=== PATIENT | female | born 1965 | race Hispanic/Latino ===

== ENCOUNTER 2017-06-01 18:36 | Emergency (ER) | payer MEDICARE ==
[2017-06-01 19:01] LABS: APPEARANCE,URINE Clear (CLEAR); BILIRUBIN,URINE Negative (NEGATIVE); COLOR,URINE Yellow (YELLOW); GLUCOSE, URINE (UA) Negative (NEGATIVE); KETONES,URINE Trace mg/dL (NEGATIVE); LEUKOCYTE ESTERASE ,URINE Negative (NEGATIVE); NITRATE,URINE Negative (NEGATIVE); OCCULT BLOOD,URINE Trace (NEGATIVE); PH,URINE 5.5 (5.0-8.0); PROTEIN,URINE Negative (NEGATIVE)
[2017-06-01 19:14] LABS: BACTERIA,URINE None Seen /HPF (None Seen); RBC,URINE 0-1 /HPF (0-1); WBC,URINE 0-1 /HPF (0-1)
[2017-06-01 19:15] LABS: SQUAMOUS EPITHELIAL CELL,UR 0-2 /LPF (0-2)
[2017-06-01] MEDS ORDERED: TRAMADOL HCL 50 MG TABLET ONE (19:52)
[2017-06-01 19:56] LABS: BASOPHILS % (AUTO) 0.3 % (0.0-5.0); EOSINOPHILS % (AUTO) 1.3 % (0.0-8.0); HEMATOCRIT 38.1 % (36-48); LYMPHOCYTES % (AUTO) 31.8 % (21.0-51.0); MEAN CORPUSCULAR HEMOGLOBIN 32.9 pg (27.0-33.0); MEAN CORPUSCULAR HGB CONC 35.1 g/dL (32.0-36.0); MEAN CORPUSCULAR VOLUME 93.7 fL (79-99); MONOCYTES % (AUTO) 6.9 % (3.0-13.0); NEUTROPHILS % (AUTO) 59.7 % (40.0-77.0); NUCLEATED RED BLOOD CELLS 0.1 % (0.0-0.19); PLATELET COUNT (AUTO) 269 K/uL (130-400); RED BLOOD CELL COUNT(AUTO) 4.07 MIL/uL (4.00-5.50); RED CELL DISTRIBUTION WIDTH 13.7 % (11.0-15.5); WHITE BLOOD COUNT (AUTO) 9.5 K/uL (4.8-10.8)
[2017-06-01 20:03] LABS: CREATININE 0.8 mg/dL (0.5-1.5); POTASSIUM 3.6 mmol/L (3.5-5.1)
[2017-06-01 20:07] LABS: ALBUMIN 3.4 g/dL (3.5-5.0); BILIRUBIN,TOTAL 0.4 mg/dL (0.2-1.0); TOTAL PROTEIN, SERUM 7.6 g/dL (6.0-8.3)
== END 2017-06-01 21:52 | disposition home or self-care (01) ==
LOC: EDH 18:36
DX: S39.011A Strain of muscle, fascia and tendon of abdomen, initial encounter (principal); I48.91 Unspecified atrial fibrillation; I25.10 Atherosclerotic heart disease of native coronary artery without angina pectoris; E11.9 Type 2 diabetes mellitus without complications; I10 Essential (primary) hypertension; Z88.6 Allergy status to analgesic agent; X58.XXXA Exposure to other specified factors, initial encounter; Y93.89 Activity, other specified; Y92.89 Other specified places as the place of occurrence of the external cause; Y99.8 Other external cause status
CPT/HCPCS: 36415; 80053; 81001; 83690; 85025

== ENCOUNTER 2017-06-24 08:35 | Emergency (ER) | payer MEDICARE ==
[2017-06-24 09:06] LABS: APPEARANCE,URINE CLEAR (CLEAR); BILIRUBIN,URINE SMALL (NEGATIVE); COLOR,URINE YELLOW (YELLOW); GLUCOSE, URINE (UA) NEGATIVE (NEGATIVE); KETONES,URINE NEGATIVE (NEGATIVE); LEUKOCYTE ESTERASE ,URINE NEGATIVE (NEGATIVE); NITRATE,URINE NEGATIVE (NEGATIVE); OCCULT BLOOD,URINE SMALL (NEGATIVE); PROTEIN,URINE TRACE (NEGATIVE); UROBILINOGEN,URINE 0.2 mg/dL (0.2-1.0)
[2017-06-24 09:16] LABS: HCG,QUAL RESULT NEGATIVE (NEGATIVE)
[2017-06-24 09:17] LABS: BACTERIA,URINE Rare /HPF (None Seen); RBC,URINE 0-1 /HPF (0-1); SQUAMOUS EPITHELIAL CELL,UR Rare /LPF (0-2); WBC,URINE 0-1 /HPF (0-1)
[2017-06-24 09:43] LABS: BASOPHILS % (AUTO) 0.2 % (0.0-5.0); EOSINOPHILS % (AUTO) 1.1 % (0.0-8.0); HEMATOCRIT 37.8 % (36-48); LYMPHOCYTES % (AUTO) 26.4 % (21.0-51.0); MEAN CORPUSCULAR HEMOGLOBIN 33.3 pg (27.0-33.0); MEAN CORPUSCULAR HGB CONC 35.9 g/dL (32.0-36.0); MEAN CORPUSCULAR VOLUME 92.9 fL (79-99); MONOCYTES % (AUTO) 5.8 % (3.0-13.0); NEUTROPHILS % (AUTO) 66.5 % (40.0-77.0); NUCLEATED RED BLOOD CELLS 0.1 % (0.0-0.19); PLATELET COUNT (AUTO) 278 K/uL (130-400); RED BLOOD CELL COUNT(AUTO) 4.07 MIL/uL (4.00-5.50); RED CELL DISTRIBUTION WIDTH 13.9 % (11.0-15.5); WHITE BLOOD COUNT (AUTO) 10.5 K/uL (4.8-10.8)
[2017-06-24 09:51] LABS: CREATININE 0.8 mg/dL (0.5-1.5); POTASSIUM 3.6 mmol/L (3.5-5.1)
[2017-06-24 09:56] LABS: ALBUMIN 3.4 g/dL (3.5-5.0); BILIRUBIN,TOTAL 0.7 mg/dL (0.2-1.0); TOTAL PROTEIN, SERUM 7.8 g/dL (6.0-8.3)
== END 2017-06-24 12:48 | disposition home or self-care (01) ==
LOC: EDH 08:35
DX: R10.84 Generalized abdominal pain (principal); R11.0 Nausea; I48.91 Unspecified atrial fibrillation; E11.9 Type 2 diabetes mellitus without complications; I25.10 Atherosclerotic heart disease of native coronary artery without angina pectoris; E78.5 Hyperlipidemia, unspecified; Z88.6 Allergy status to analgesic agent; Z90.710 Acquired absence of both cervix and uterus
CPT/HCPCS: 36415; 74176; 80053; 81001; 81025; 85025

== ENCOUNTER 2018-04-11 14:23 | Emergency (ER) | payer MEDICARE ==
[2018-04-11 15:05] LABS: BILIRUBIN,URINE Negative (NEGATIVE); COLOR,URINE Yellow (YELLOW); GLUCOSE, URINE (UA) >=1000 mg/dL (NEGATIVE); KETONES,URINE Negative (NEGATIVE); LEUKOCYTE ESTERASE ,URINE Negative (NEGATIVE); NITRATE,URINE Negative (NEGATIVE); OCCULT BLOOD,URINE Nonhemolyzed Trace (NEGATIVE); PH,URINE 5.5 (5.0-8.0); PROTEIN,URINE Negative (NEGATIVE); UROBILINOGEN,URINE 0.2 mg/dL (0.2-1.0)
[2018-04-11 15:13] LABS: APPEARANCE,URINE SLIGHTLY CLOUDY (CLEAR)
[2018-04-11 15:38] LABS: BACTERIA,URINE Moderate /HPF (None Seen); WBC,URINE 0-1 /HPF (0-1)
== END 2018-04-11 15:30 | disposition home or self-care (01) ==
LOC: EDH 14:23
DX: B37.3 Candidiasis of vulva and vagina (principal); I48.91 Unspecified atrial fibrillation; I25.10 Atherosclerotic heart disease of native coronary artery without angina pectoris; E11.9 Type 2 diabetes mellitus without complications; I10 Essential (primary) hypertension; Z88.6 Allergy status to analgesic agent
CPT/HCPCS: 81001; 87088

== ENCOUNTER 2018-11-19 16:48 | Emergency (ER) | payer MEDICARE | END 2018-11-19 17:17 | disposition home or self-care (01) | LOC: EDH 16:48 | DX: S81.012D Laceration without foreign body, left knee, subsequent encounter (principal); I10 Essential (primary) hypertension; I48.91 Unspecified atrial fibrillation; I25.10 Atherosclerotic heart disease of native coronary artery without angina pectoris; E11.9 Type 2 diabetes mellitus without complications; Z95.1 Presence of aortocoronary bypass graft; Z98.890 Other specified postprocedural states; Z88.6 Allergy status to analgesic agent; X58.XXXD Exposure to other specified factors, subsequent encounter | CPT/HCPCS: 99281 ==

== ENCOUNTER 2019-01-29 17:04 | Emergency (ER) | payer MEDICARE ==
[2019-01-29 18:36] LABS: BASOPHILS % (AUTO) 1.2 % (0.0-5.0); EOSINOPHILS % (AUTO) 3.4 % (0.0-8.0); HEMATOCRIT 38.8 % (36-48); LYMPHOCYTES % (AUTO) 37.2 % (21.0-51.0); MEAN CORPUSCULAR HEMOGLOBIN 32.4 pg (27.0-33.0); MEAN CORPUSCULAR HGB CONC 35.4 g/dL (32.0-36.0); MEAN CORPUSCULAR VOLUME 91.5 fL (79-99); MONOCYTES % (AUTO) 6.6 % (3.0-13.0); NEUTROPHILS % (AUTO) 51.6 % (40.0-77.0); PLATELET COUNT (AUTO) 237 K/uL (130-400); RED BLOOD CELL COUNT(AUTO) 4.24 MIL/uL (4.00-5.50); WHITE BLOOD COUNT (AUTO) 7.9 K/uL (4.8-10.8)
[2019-01-29 18:41] LABS: APPEARANCE,URINE Clear (CLEAR); BILIRUBIN,URINE Negative (NEGATIVE); COLOR,URINE Yellow (YELLOW); GLUCOSE, URINE (UA) >=1000 mg/dL (NEGATIVE); KETONES,URINE Negative (NEGATIVE); LEUKOCYTE ESTERASE ,URINE Negative (NEGATIVE); NITRATE,URINE Negative (NEGATIVE); OCCULT BLOOD,URINE Negative (NEGATIVE); PROTEIN,URINE Negative (NEGATIVE); UROBILINOGEN,URINE 0.2 mg/dL (0.2-1.0)
[2019-01-29 18:52] LABS: CREATININE 0.7 mg/dL (0.5-1.5); POTASSIUM 4.4 mmol/L (3.5-5.1)
[2019-01-29 18:55] LABS: BACTERIA,URINE Few /HPF (None Seen); MUCUS,URINE Few LPF (None Seen); SQUAMOUS EPITHELIAL CELL,UR 0-2 /HPF (0-2)
[2019-01-29 18:56] LABS: ALBUMIN 3.4 g/dL (3.5-5.0); BILIRUBIN,TOTAL 0.4 mg/dL (0.2-1.0); TOTAL PROTEIN, SERUM 7.3 g/dL (6.0-8.3)
[2019-01-29] MEDS ORDERED: INSULIN HUMULIN R 100 UNIT/ML 3ML ONE (19:21)
== END 2019-01-29 19:45 | disposition home or self-care (01) ==
LOC: EDH 17:04
DX: R11.2 Nausea with vomiting, unspecified (principal); E11.9 Type 2 diabetes mellitus without complications; I10 Essential (primary) hypertension; I25.10 Atherosclerotic heart disease of native coronary artery without angina pectoris; I48.91 Unspecified atrial fibrillation; Z90.710 Acquired absence of both cervix and uterus; Z90.49 Acquired absence of other specified parts of digestive tract; Z98.890 Other specified postprocedural states; Z88.6 Allergy status to analgesic agent
CPT/HCPCS: 36415; 74176; 80053; 81001; 83690; 84484; 85025; 93005; 96374; 99285; J1815

== ENCOUNTER 2019-02-06 19:28 | Emergency (ER) | payer MEDICARE | END 2019-02-06 21:02 | disposition home or self-care (01) | LOC: EDH 19:28 | DX: N76.1 Subacute and chronic vaginitis (principal); I10 Essential (primary) hypertension; E11.9 Type 2 diabetes mellitus without complications; I25.10 Atherosclerotic heart disease of native coronary artery without angina pectoris; I48.91 Unspecified atrial fibrillation ==

== ENCOUNTER 2023-09-12 18:04 | Emergency (ER) | payer MEDICARE ==
[~2023-09-12] VITALS: Ht 162.6 cm; Wt 108.4 kg
[2023-09-12] MEDS ORDERED: 0.9%NACL 1000ML 1,000 ML IV SCH (18:30)
[2023-09-12 19:12] LABS: BASOPHILS # (AUTO) 0.03 K/uL (0.00-0.20); BASOPHILS % (AUTO) 0.2 % (0.0-5.0); EOSINOPHILS # (AUTO) 0.01 K/uL (0.00-0.70); EOSINOPHILS % (AUTO) 0.1 % (0.0-8.0); HEMATOCRIT 42.5 % (36-48); LYMPHOCYTES % (AUTO) 19.3 % (21.0-51.0); MEAN CORPUSCULAR HEMOGLOBIN 31.9 pg (27.0-33.0); MEAN CORPUSCULAR VOLUME 88.5 fL (79-99); MONOCYTES # (AUTO) 0.9 K/uL (0.1-1.0); NEUTROPHILS # (AUTO) 11.5 K/uL (1.8-7.7); NEUTROPHILS % (AUTO) 72.5 % (40.0-77.0); PLATELET COUNT (AUTO) 297 K/uL (130-400); RED CELL DISTRIBUTION WIDTH 12.9 % (11.0-15.5); WHITE BLOOD COUNT (AUTO) 15.8 K/uL (4.8-10.8)
[2023-09-12 19:21] LABS: ALBUMIN 3.3 g/dL (3.5-5.0); BILIRUBIN,TOTAL 0.4 mg/dL (0.2-1.0); CREATININE 0.8 mg/dL (0.5-1.0); TOTAL PROTEIN, SERUM 7.8 g/dL (6.0-8.3)
[2023-09-12 19:28] LABS: HEMOGLOBIN A1C 8.2 % (4.0-6.0)
[2023-09-12] MEDS: INSULIN HUMULIN R 100 UNIT/ML 3ML SQ ONE (19:36)
[2023-09-12 19:41] LABS: POTASSIUM 3.5 mmol/L (3.5-5.1)
[2023-09-12 20:02] VITALS: BP 142/74; PULSE 80; RESP 18; O2SAT 96
== END 2023-09-12 20:23 | disposition home or self-care (01) ==
LOC: EDH 18:04
DX: E11.65 Type 2 diabetes mellitus with hyperglycemia (principal); E86.0 Dehydration; Z88.6 Allergy status to analgesic agent
CPT/HCPCS: 99283; 83036; 80053; 85025; 36415; 96372; J1815; J7030

== ENCOUNTER 2023-12-14 16:35 | Emergency (ER) | payer MEDICARE ==
[~2023-12-14] VITALS: Ht 162.6 cm; Wt 106.6 kg
[2023-12-14 17:29] LABS: BASOPHILS # (AUTO) 0.04 K/uL (0.00-0.20); BASOPHILS % (AUTO) 0.5 % (0.0-5.0); EOSINOPHILS # (AUTO) 0.14 K/uL (0.00-0.70); EOSINOPHILS % (AUTO) 1.9 % (0.0-8.0); IMMATURE GRANULOCYTE ABSOLUTE 0.04 K/uL (0-1); LYMPHOCYTES # (AUTO) 2.6 K/uL (1.0-4.8); LYMPHOCYTES % (AUTO) 34.7 % (21.0-51.0); MEAN CORPUSCULAR VOLUME 91.3 fL (79-99); MONOCYTES # (AUTO) 0.5 K/uL (0.1-1.0); MONOCYTES % (AUTO) 6.9 % (3.0-13.0); NEUTROPHILS # (AUTO) 4.1 K/uL (1.8-7.7); NEUTROPHILS % (AUTO) 55.5 % (40.0-77.0); PLATELET COUNT (AUTO) 216 K/uL (130-400); RED CELL DISTRIBUTION WIDTH 13.2 % (11.0-15.5); WHITE BLOOD COUNT (AUTO) 7.4 K/uL (4.8-10.8)
[2023-12-14 18:00] LABS: ALBUMIN 3.1 g/dL (3.5-5.0); BILIRUBIN,TOTAL 0.4 mg/dL (0.2-1.0); CREATININE 0.7 mg/dL (0.5-1.0); POTASSIUM 3.6 mmol/L (3.5-5.1); TOTAL PROTEIN, SERUM 7.3 g/dL (6.0-8.3)
[2023-12-14 18:22] LABS: APPEARANCE,URINE CLEAR (CLEAR); BILIRUBIN,URINE NEGATIVE (NEGATIVE); COLOR,URINE COLORLESS (YELLOW); GLUCOSE, URINE (UA) >=1000 mg/dL (NEGATIVE); KETONES,URINE NEGATIVE (NEGATIVE); LEUKOCYTE ESTERASE ,URINE NEGATIVE Leu/uL (NEGATIVE); NITRATE,URINE NEGATIVE (NEGATIVE); OCCULT BLOOD,URINE NEGATIVE (NEGATIVE); PROTEIN,URINE NEGATIVE (NEGATIVE); UROBILINOGEN,URINE 0.2 mg/dL (0.2-1.0)
[2023-12-14 18:35] LABS: ADD UA MICROSCOPIC YES
[2023-12-14 18:36] LABS: WBC,URINE 0-1 /HPF (0-1)
[2023-12-14 19:03] VITALS: BP 152/63; PULSE 84; RESP 20; O2SAT 98
== END 2023-12-14 19:43 | disposition home or self-care (01) ==
LOC: EDH 16:35
DX: E11.65 Type 2 diabetes mellitus with hyperglycemia (principal); R42 Dizziness and giddiness; I10 Essential (primary) hypertension; I25.2 Old myocardial infarction; Z86.73 Personal history of transient ischemic attack (TIA), and cerebral infarction without residual deficits; Z88.6 Allergy status to analgesic agent; Z98.890 Other specified postprocedural states
CPT/HCPCS: 36415; 70450; 80053; 81001; 84484; 85025; 93005

== ENCOUNTER 2023-12-19 11:56 | Emergency (ER) | payer MEDICARE ==
[~2023-12-19] VITALS: Ht 162.6 cm; Wt 110.2 kg
[2023-12-19 12:46] LABS: BASOPHILS # (AUTO) 0.03 K/uL (0.00-0.20); BASOPHILS % (AUTO) 0.4 % (0.0-5.0); EOSINOPHILS # (AUTO) 0.15 K/uL (0.00-0.70); EOSINOPHILS % (AUTO) 1.8 % (0.0-8.0); HEMATOCRIT 43.5 % (36-48); IMMATURE GRANULOCYTE ABSOLUTE 0.04 K/uL (0-1); LYMPHOCYTES # (AUTO) 2.4 K/uL (1.0-4.8); LYMPHOCYTES % (AUTO) 28.9 % (21.0-51.0); MEAN CORPUSCULAR HEMOGLOBIN 31.7 pg (27.0-33.0); MEAN CORPUSCULAR HGB CONC 34.7 g/dL (32.0-36.0); MEAN CORPUSCULAR VOLUME 91.4 fL (79-99); MONOCYTES # (AUTO) 0.6 K/uL (0.1-1.0); MONOCYTES % (AUTO) 6.7 % (3.0-13.0); NEUTROPHILS # (AUTO) 5.2 K/uL (1.8-7.7); NEUTROPHILS % (AUTO) 61.7 % (40.0-77.0); PLATELET COUNT (AUTO) 248 K/uL (130-400); RED BLOOD CELL COUNT(AUTO) 4.76 MIL/uL (4.00-5.50); RED CELL DISTRIBUTION WIDTH 13.1 % (11.0-15.5); WHITE BLOOD COUNT (AUTO) 8.4 K/uL (4.8-10.8)
[2023-12-19 13:02] LABS: ALBUMIN 3.4 g/dL (3.5-5.0); BILIRUBIN,TOTAL 0.5 mg/dL (0.2-1.0); CREATININE 0.8 mg/dL (0.5-1.0); TOTAL PROTEIN, SERUM 7.6 g/dL (6.0-8.3)
[2023-12-19] MEDS: 0.9%NACL 1000ML 1,000 ML IV ONE (13:14)
[2023-12-19 13:20] LABS: APPEARANCE,URINE CLEAR (CLEAR); BILIRUBIN,URINE NEGATIVE (NEGATIVE); COLOR,URINE LIGHT-YELLOW (YELLOW); GLUCOSE, URINE (UA) >=1000 mg/dL (NEGATIVE); KETONES,URINE NEGATIVE (NEGATIVE); LEUKOCYTE ESTERASE ,URINE NEGATIVE Leu/uL (NEGATIVE); NITRATE,URINE NEGATIVE (NEGATIVE); OCCULT BLOOD,URINE NEGATIVE (NEGATIVE); PROTEIN,URINE NEGATIVE (NEGATIVE); UROBILINOGEN,URINE 0.2 mg/dL (0.2-1.0)
[2023-12-19 13:21] LABS: ADD UA MICROSCOPIC YES
[2023-12-19 13:22] LABS: BACTERIA,URINE RARE /HPF (None Seen); SQUAMOUS EPITHELIAL CELL,UR FEW /HPF (0-2)
[2023-12-19] MEDS ORDERED: AZIT250T9 PO (15:33)
[2023-12-19] MEDS ORDERED: ALBUHFA IH (15:33)
[2023-12-19 15:52] VITALS: BP 146/70; PULSE 82; RESP 17; O2SAT 97
[2023-12-23] MEDS ORDERED: OMEP40CA21 PO (13:55)
[2023-12-23] MEDS ORDERED: LISI10TA24 PO (13:55)
[2023-12-23] MEDS ORDERED: ATOR40TA71 PO (13:55)
[2023-12-23] MEDS ORDERED: EMPA25TA PO (13:55)
[2023-12-23] MEDS ORDERED: SOLI5TAB6 PO (13:55)
[2023-12-23] MEDS ORDERED: MONT-39 PO (13:55)
[2023-12-23] MEDS ORDERED: HYDR-3422 PO (13:55)
[2023-12-23] MEDS ORDERED: METO50TA18 PO (13:55)
[2023-12-23] MEDS ORDERED: CETI10TA57 PO (13:55)
[2023-12-23] MEDS ORDERED: METF-446 PO (13:55)
[2023-12-23] MEDS ORDERED: ESCI-8 PO (13:59)
[2023-12-23] MEDS ORDERED: ONDA-243 PO (13:59)
[2023-12-23] MEDS ORDERED: FLUT1AER IH (13:59)
[2023-12-23] MEDS ORDERED: FLUO40CA49 PO (13:59)
[2023-12-23] MEDS ORDERED: TRAZ-185 PO (13:59)
[2023-12-23] MEDS ORDERED: MECL-302 PO (13:59)
[2023-12-23] MEDS ORDERED: CYCL-309 PO (13:59)
[2023-12-23] MEDS ORDERED: METH-811 PO (13:59)
[2023-12-23] MEDS ORDERED: LORA0.5T83 PO (13:59)
[2023-12-23] MEDS ORDERED: INSU3INS5 SQ (14:03)
[2023-12-23] MEDS ORDERED: DICLOFENAC TP (14:03)
[2023-12-23] MEDS ORDERED: SEMA1PEN3 SQ (14:03)
[2023-12-23] MEDS ORDERED: VITAMIN D3 PO (14:03)
[2023-12-23] MEDS ORDERED: B 12 PO (14:03)
[2023-12-23] MEDS ORDERED: BUDE10.2 IH (14:03)
[2023-12-23] MEDS ORDERED: INSU100I35 SQ (14:03)
[2023-12-23] MEDS ORDERED: GABAPENTIN PO (14:03)
[2023-12-23] MEDS ORDERED: VIT C PO (14:03)
== END 2023-12-19 15:53 | disposition home or self-care (01) ==
LOC: EDH 11:56
DX: J20.9 Acute bronchitis, unspecified (principal); E11.65 Type 2 diabetes mellitus with hyperglycemia; E86.0 Dehydration; F41.9 Anxiety disorder, unspecified; I10 Essential (primary) hypertension; M79.604 Pain in right leg; Z88.8 Allergy status to other drugs, medicaments and biological substances; Z98.890 Other specified postprocedural states
CPT/HCPCS: 99285; 96360; 71045; 96361; 83735; 84484; 80053; 83880; 85025; 81001; 36415; 93005; J7030

== ENCOUNTER 2023-12-27 08:00 | Day surgery (SDC) | payer MEDICARE ==
[2023-12-19 11:55] LABS: BASOPHILS # (AUTO) 0.03 K/uL (0.00-0.20); BASOPHILS % (AUTO) 0.4 % (0.0-5.0); EOSINOPHILS # (AUTO) 0.14 K/uL (0.00-0.70); EOSINOPHILS % (AUTO) 1.8 % (0.0-8.0); HEMATOCRIT 43.1 % (36-48); IMMATURE GRANULOCYTE ABSOLUTE 0.02 K/uL (0-1); LYMPHOCYTES # (AUTO) 2.4 K/uL (1.0-4.8); MEAN CORPUSCULAR HEMOGLOBIN 31.5 pg (27.0-33.0); MEAN CORPUSCULAR HGB CONC 34.8 g/dL (32.0-36.0); MEAN CORPUSCULAR VOLUME 90.5 fL (79-99); MONOCYTES # (AUTO) 0.5 K/uL (0.1-1.0); MONOCYTES % (AUTO) 5.8 % (3.0-13.0); NEUTROPHILS # (AUTO) 4.9 K/uL (1.8-7.7); NEUTROPHILS % (AUTO) 61.7 % (40.0-77.0); PLATELET COUNT (AUTO) 245 K/uL (130-400); RED BLOOD CELL COUNT(AUTO) 4.76 MIL/uL (4.00-5.50); RED CELL DISTRIBUTION WIDTH 13.2 % (11.0-15.5); WHITE BLOOD COUNT (AUTO) 7.9 K/uL (4.8-10.8)
[2023-12-19 12:01] LABS: CREATININE 0.8 mg/dL (0.5-1.0); POTASSIUM 4.1 mmol/L (3.5-5.1)
[2023-12-19 12:06] LABS: INR 0.97 (0.85-1.15); PROTHROMBIN TIME 10.5 SEC (9.6-11.6)
[2023-12-19 12:08] LABS: PARTIAL THROMBOPLASTIN TIME 30.2 SEC (26.3-35.5)
[2023-12-23 13:48] VITALS: BP 182/67; PULSE 95; RESP 19
[2023-12-27] VITALS (23 sets, daily range): BP systolic 129–163; BP diastolic 51–75; PULSE 76–92; RESP 12–21
[~2023-12-27] VITALS: Ht 162.6 cm; Wt 112.2 kg
[~2023-12-27 08:00] MED LIST: ALBUHFA IH; ATOR40TA71 PO; B 12 PO; BUDE10.2 IH; CETI10TA57 PO; CYCL-309 PO; DICLOFENAC TP; EMPA25TA PO; ESCI-8 PO; FLUO40CA49 PO; FLUT1AER IH; GABAPENTIN PO; HYDR-3422 PO; INSU100I35 SQ; INSU3INS5 SQ; LISI10TA24 PO; LORA0.5T83 PO; MECL-302 PO; METF-446 PO; METH-811 PO; METO50TA18 PO; MONT-39 PO; OMEP40CA21 PO; ONDA-243 PO; SEMA1PEN3 SQ; SOLI5TAB6 PO; TRAZ-185 PO; VIT C PO; VITAMIN D3 PO
[2023-12-27] MEDS ORDERED: IOHEXOL-350 50ML VIAL IV ONE (08:08)
[2023-12-27] MEDS ORDERED: CEFAZOLIN SODIUM 2 GM VIAL ONE (08:46)
[2023-12-27] MEDS ORDERED: ACETAMINOPHEN 1,000 MG/100 ML VIAL IV ONE (08:53)
[2023-12-27] MEDS ORDERED: FAMOTIDINE 20MG VIAL IV ONE (08:53)
[2023-12-27] MEDS ORDERED: ROPIVACAINE 0.5% 5MG/ML 30ML ONE (08:55)
[2023-12-27] MEDS ORDERED: LIDOCAINE PF 100MG/5ML (2%) SYRINGE 5ML ONE (09:03)
[2023-12-27] MEDS ORDERED: FENTANYL CITRATE PF 50 MCG/1 ML 2ML VIAL ONE (09:04)
[2023-12-27] MEDS ORDERED: PROPOFOL 10 MG/ML 20ML VIAL IV ONE (09:04)
[2023-12-27] MEDS ORDERED: ROCURONIUM BROMIDE 10MG/1ML 5ML VL ONE ×2 (09:04→09:39)
[2023-12-27] MEDS: LACTATED RINGERS 1000ML 1,000 ML IV ONE (09:16)
[2023-12-27] MEDS ORDERED: ONDANSETRON 4MG INJ ONE (09:27)
[2023-12-27] MEDS ORDERED: DEXAMETHASONE SOD PHOSPHATE 10MG/ML 1ML VIAL ONE (09:27)
[2023-12-27] MEDS ORDERED: GLYCOPYRROLATE 0.2 MG/ML 5 ML VIAL ONE (09:38)
[2023-12-27] MEDS ORDERED: NEOSTIGMINE METHYLSULFATE 1MG/ML IV ONE (09:39)
[2023-12-27] MEDS ORDERED: PHENYLEPHRINE HCL 10 MG/ML 1ML VIAL IV ONE (09:51)
[2023-12-27] MEDS ORDERED: SUGAMMADEX SODIUM 200 MG/2 ML VIAL IV ONE (09:57)
[2023-12-27] MEDS ORDERED: ACET-2079 PO (10:04)
[2023-12-27] MEDS ORDERED: DOCU-116 PO (10:04)
== END 2023-12-27 13:45 | disposition home or self-care (01) ==
LOC: DAH 08:00
PROVIDERS: ATTEND Surgery
DX: K80.20 Calculus of gallbladder without cholecystitis without obstruction (principal); E78.5 Hyperlipidemia, unspecified; E11.9 Type 2 diabetes mellitus without complications; F41.9 Anxiety disorder, unspecified; K21.9 Gastro-esophageal reflux disease without esophagitis; Z90.710 Acquired absence of both cervix and uterus; Z79.01 Long term (current) use of anticoagulants; Z79.899 Other long term (current) drug therapy
CPT/HCPCS: 80048; 85025; 85610; 85730; 86850 ×2; 86900 ×2; 86901 ×2; 36415 ×2; 93005; 49320; 82948 ×2; A6260; A4600; A4663; J7030; A4215 ×2; C1758; J7120; J3490 ×4; J3010; J1100; J2001; J2704; J2405; J2710; J2795; J2371; Q9967; J0690; G0168; A4649 ×2; A4930; A4223; A4213; A4222; A4221

== ENCOUNTER 2024-05-16 11:59 | Emergency (ER) | payer MEDICARE ==
[~2024-05-16] VITALS: Ht 162.6 cm; Wt 108.0 kg
[~2024-05-16 11:59] MED LIST changes: +ACET-2079 PO; +DOCU-116 PO
--- NOTE | 2024-05-16 12:33 | NUR ---
PENDING GFR RESULTS, IV SITE, & CONSENT FOR CT EXAM.
[2024-05-16 12:37] LABS: APPEARANCE,URINE CLEAR (CLEAR); BILIRUBIN,URINE NEGATIVE (NEGATIVE); COLOR,URINE LIGHT-YELLOW (YELLOW); GLUCOSE, URINE (UA) >=1000 mg/dL (NEGATIVE); KETONES,URINE NEGATIVE (NEGATIVE); LEUKOCYTE ESTERASE ,URINE NEGATIVE Leu/uL (NEGATIVE); NITRATE,URINE NEGATIVE (NEGATIVE); OCCULT BLOOD,URINE NEGATIVE (NEGATIVE); PROTEIN,URINE NEGATIVE (NEGATIVE); UROBILINOGEN,URINE 0.2 mg/dL (0.2-1.0)
--- NOTE | 2024-05-16 12:40 | ERN ---
General Chief Complaint: Abdominal Pain Stated Complaint: ABD PAIN Time Seen by MD: 12:03 Time Seen by Midlevel: 12:03 Source: patient History of Present Illness Initial Comments 59-year-old female who presents to the ED due to abdominal pain onset last night. Patient reports pain is at the left upper quadrant and radiates to the back, diarrhea. States she ate fried chicken yesterday. Denies any chest pain, vomiting or further associated symptoms. PMHx DM, HTN, stroke, hypercho lesterolemia Allergies: Coded Allergies: ibuprofen (Unverified Allergy, Unknown, 02/06/19) Home Meds Active Scripts Pantoprazole Sodium (Protonix) 20 Mg Tablet.dr, 20 MG PO DAILY for 30 Days, #30 TAB Prov:EN BREAUX 05/16/24 Docusate Sodium (Colace) 100 Mg Capsule, 100 MG PO BID, #30 CAP 0 Refills Prov:LILLY PÉREZ MD 12/27/23 Acetaminophen with Codeine (Acetaminophen-Cod #3 Tablet) 300 Mg-30 Mg Tablet, 1 EACH PO Q6HPRN PRN for PAIN, #12 TAB 0 Refills Prov:LILLY PÉREZ MD 12/27/23 Albuterol Sulfate (Ventolin Hfa/Proventil Hfa/Proair Hfa) 90 Mcg Puff, 2 PUFF IH Q4H for WHEEZING, #1 INHALER 0 Refills Prov:SHERYL ONEIL BACK G[employer] CLOTH WASHER 12/19/23 Reported Medications [Diclofenac] No Conflict Check, 1 APPL TP AD PRN for PAIN 12/23/23 [Vit C] No Conflict Check, 500 MG PO AM 12/23/23 [B 12] No Conflict Check, 5000 MCG PO AM 12/23/23 [Vitamin D3] No Conflict Check, 1000 UNIT PO AM 12/23/23 Semaglutide (Ozempic) 1 Mg/0.75 Ml (4 Mg/3 Ml) Pen.injctr, 1 MG SQ Saturday12/23/23 Insulin NPH Hum/Reg Insulin Hm (Novolin 70-30 Flexpen) 100 Unit/Ml (70-30) Insuln.pen, 25 UNIT SQ PM, SYRINGE 12/23/23 Insuln Asp Prt/Insulin Aspart (Novolog Mix 70-30 Flexpen Syrn) 100 Unit/Ml (70- 30) Insuln.pen, 45 UNIT SQ AM, SYRINGE 12/23/23 [Gabapentin] No Conflict Check, 500 MG PO TID 12/23/23 Budesonide/Formoterol Fumarate (Symbicort 160-4.5 Mcg Inhaler) 160 Mcg-4.5 Mcg/Actuation Hfa.aer.ad, 2 EA IH AD PRN for SHORTNESS OF BREATH 12/23/23 Fluticasone/Vilanterol (Breo Ellipta 100-25 Mcg INH) 100 Mcg-25 Mcg/Dose Aer.pow.ba, 2 EACH IH AD PRN for SHORTNESS OF BREATH 12/23/23 Escitalopram Oxalate (Escitalopram Oxalate) 10 Mg Tablet, 10 MG PO AM, TAB 12/23/23 Trazodone HCl (Trazodone HCl) 50 Mg Tablet, 75 MG PO HS, TAB 12/23/23 Meclizine HCl (Meclizine HCl) 25 Mg Tablet, 25 MG PO TID, TAB 12/23/23 Ondansetron (Ondansetron Odt) 4 Mg Tab.rapdis, 4 MG PO AD PRN for NAUSEA/VOMITING, TAB 12/23/23 Cyclobenzaprine HCl (Cyclobenzaprine HCl) 10 Mg Tablet, 10 MG PO TID, TAB 12/23/23 Methocarbamol (Methocarbamol) 500 Mg Tablet, 500 MG PO AD PRN for SPASM, TAB 12/23/23 Lorazepam (Ativan) 0.5 Mg Tablet, 0.725 MG PO HS, TAB 12/23/23 Fluoxetine HCl (Fluoxetine HCl) 40 Mg Capsule, 40 MG PO AM, CAP 12/23/23 Hydroxyzine HCl (Hydroxyzine HCl) 50 Mg Tablet, 50 MG PO BID, TAB 12/23/23 Solifenacin Succinate (Solifenacin Succinate) 5 Mg Tablet, 5 MG PO AM, TAB 12/23/23 Cetirizine HCl (Cetirizine HCl) 10 Mg Tablet, 10 MG PO AM, TAB 12/23/23 Montelukast Sodium (Montelukast Sodium) 10 Mg Tablet, 10 MG PO AM, TAB 12/23/23 Omeprazole (Omeprazole) 40 Mg Capsule.dr, 40 MG PO DAILY PRN for HEARTBURN, CAP 12/23/23 Atorvastatin Calcium (Atorvastatin Calcium) 40 Mg Tablet, 40 MG PO AM, TAB 12/23/23 Lisinopril (Lisinopril) 10 Mg Tablet, 10 MG PO AM, TAB 12/23/23 Metoprolol Tartrate (Metoprolol Tartrate) 50 Mg Tablet, 50 MG PO BID, TAB 12/23/23 Metformin HCl (Metformin HCl) 1,000 Mg Tablet, 1000 MG PO BID, TAB 12/23/23 Empagliflozin (Jardiance) 25 Mg Tablet, 25 MG PO AM, TAB 12/23/23 Past Medical History Past Medical History: A-Fib, Diabetes-Type II, High Cholesterol, Heart Disease, Hypertension, Stroke Medical History Other: CARDIAC ABLATION Past Surgical History: Cholecystectomy, Surgical History Other: HEART CATH, LUMBAR SX Female( History) History: Not Applicable ROS Dictation Constitutional: Negative for fever,chills, and weight loss Eyes: Negative for injury, pain,redness, and discharge ENT: Negative for injury,pain or swelling Cardiovascular: Negative for chest pain, palpitations, and edema Respiratory: Negative for shortness of breath, cough, and wheezing, Abdomen/GI: Positive for abdominal pain, diarrhea Negative for nausea, vomiting, and constipation Back: Negative for injury and pain : Negative for painful urination, bleeding or discharge MS/Extremity: Negative for injury and deformity Skin: Negative for rash, and discoloration Neuro: Negative for headache, weakness, numbness, tingling, and seizure Psych: Negative for suicide ideation, homicidal ideation, and hallucinations Physical Exam Physical Exam Dictation General: awake, alert, no acute distress Head/Face: Normocephalic, atraumatic Eyes: normal conjunctiva ENT: oral cavity clear, oral mucosa moist Neck: Normal range of motion Cardiovascular: RRR, normal S1/S2 Respiratory: CTAB, no respiratory distress, No rales or wheezes Abdomen: Soft, mild left upper quadrant tenderness, non-distended, no guarding or rebound. Skin: Warm, dry, normal turgor, no rash MS/Extremity: Pulses equal, no cyanosis, neurovascular intact, FROM Neuro: COAx4, GCS 15, normal gait Psych: Normal behavior, mood, and affect normal Results Laboratory and Microbiology Lab and Micro Result Laboratory Tests Test 05/16/24 12:11 05/16/24 12:43 Urine Color LIGHT-YELLOW (YELLOW) Urine Appearance CLEAR (CLEAR) Urine pH 6.0 (5.0-8.0) Urine Specific [place] 1.038 (1.001-1.031) Urine Protein NEGATIVE mg/dL (NEGATIVE) Urine Glucose (UA) >=1000 mg/dL (NEGATIVE) H Urine Ketones NEGATIVE mg/dL (NEGATIVE) Urine Occult Blood NEGATIVE (NEGATIVE) Urine Nitrate NEGATIVE (NEGATIVE) Urine Bilirubin NEGATIVE mg/dL (NEGATIVE) Urine Urobilinogen 0.2 mg/dL (0.2-1.0) Urine Leukocyte Esterase NEGATIVE Elijah/uL Urine RBC 2-5 /HPF (0-1) H Urine WBC 2-5 /HPF (0-1) H Urine Squamous Epithelial Cells FEW /HPF (0-2) Urine Bacteria RARE /HPF (None Seen) White Blood Count 9.0 K/uL (4.8-10.8) Red Blood Count 4.94 MIL/uL (4.00-5.50) Hemoglobin 15.4 g/dL (12.0-16.0) Hematocrit 45.3 % (36-48) Mean Corpuscular Volume 91.7 fL (79-99) Mean Corpuscular Hemoglobin 31.2 pg (27.0-33.0) Mean Corpuscular Hemoglobin Concent 34.0 g/dL (32.0-36.0) Red Cell Distribution Width 13.2 % (11.0-15.5) Platelet Count 259 K/uL (130-400) Mean Platelet Volume 9.4 fL (7.5-10.5) Immature Granulocyte % (Auto) 0.6 % (0-1) Neutrophils (%) (Auto) 60.5 % (40.0-77.0) Lymphocytes (%) (Auto) 30.3 % (21.0-51.0) Monocytes (%) (Auto) 6.3 % (3.0-13.0) Eosinophils (%) (Auto) 2.0 % (0.0-8.0) Basophils (%) (Auto) 0.3 % (0.0-5.0) Neutrophils # (Auto) 5.5 K/uL (1.8-7.7) Lymphocytes # (Auto) 2.7 K/uL (1.0-4.8) Monocytes # (Auto) 0.6 K/uL (0.1-1.0) Eosinophils # (Auto) 0.18 K/uL (0.00-0.70) Basophils # (Auto) 0.03 K/uL (0.00-0.20) Absolute Immature Granulocyte (auto 0.05 K/uL (0-1) Nucleated Red Blood Cells 0.0 % (0.0-0.19) Sodium Level 139 mmol/L (136-145) Potassium Level 3.8 mmol/L (3.5-5.1) Chloride Level 103 mmol/L (101-111) Carbon Dioxide Level 30 mmol/L (21-32) Blood Urea Nitrogen 11 mg/dL (7-18) Creatinine 0.7 mg/dL (0.5-1.0) Glomerular Filtration Rate Calc 100 mL/min (>90) Random Glucose 137 mg/dL (70-105) H Total Calcium 9.5 mg/dL (8.5-10.1) Total Bilirubin 0.7 mg/dL (0.2-1.0) Aspartate Amino Transf (AST/SGOT) 41 U/L (10-37) H Alanine Aminotransferase (ALT/SGPT) 44 U/L (12-78) Alkaline Phosphatase 167 U/L (50-136) H Total Protein 7.9 g/dL (6.0-8.3) Albumin 3.5 g/dL (3.5-5.0) Lipase 39 U/L (16-77) Labs Reviewed?: Yes EKG/XRAY/US/CT/MRI EKG Comment Date:05/16/24 Time: 15:05 Rate:76 EKG interpretation: Sinus rhythm, no STEMI, left axis deviation Reviewed by ED Attending CT Scan Comment REASON: LUQ pain ORDERING PHYSICIAN: EN BREAUX PROCEDURE: ABD PEL W - CT ABDOMEN/PELVIS W/CONTRAST Exam Type: CT ABDOMEN AND PELVIS WITH ORAL AND IV CONTRAST Clinical Information: LUQ pain Comparison: none Contrast: 100 cc's Isovue 370 IV, no complications or adverse reactions Technique: Routine helical scanning at 5mm collimation through the abdomen and pelvis was performed after oral contrast administration. The examination was done before and after IV contrast administration as well. Intermediate and 7 minute delayed post IV contrast administration images were performed, for adequate contrast distention of the urinary collecting systems, ureters and the urinary bladder. CT Dose Index (CTDI): 19.87 mGy Dose Length Product (DLP): 1030.48 total mGy-cm Findings: No evidence of nephro or ureterolithiasis is found. No hydronephrosis or ureteral dilatation is seen. The lung bases are clear. The stomach is unremarkable. It shows no wall thickening. No gross ulceration is seen. It is not overly distended. There are no surrounding inflammatory changes. No wall lesions are identified to suggest cancer. The spleen is unremarkable. It is not enlarged. The pancreas shows normal anatomy. It is not fatty replaced. It shows no lesions. The pancreatic duct is not dilated. The gallbladder is surgically absent. The adrenal glands are unremarkable. There is no enlargement. No lesions are noted. The liver is unremarkable. It shows no focal masses. The appendix is unremarkable. It shows no evidence of inflammation. No appendicolith is seen. The small bowel is unremarkable. There is no evidence of dilatation to suggest obstruction. No evidence of adynamic ileus is seen. There is no small bowel wall thickening to suggest enteritis. The colon is unremarkable. The urinary bladder is unremarkable. There is no wall thickening to suggest tumor or inflammation. There are no intraluminal calculi. There are no diverticula. There is no evidence of chronic bladder outlet obstruction. There is no evidence of urinary bladder distention to suggest urinary retention. The other pelvic structures are unremarkable. The bony and vascular structures are unremarkable for the patient's age. IMPRESSION: Status post cholecystectomy. No acute pathology. This study was performed using dose reduction techniques to include automated exposure control and/or adjustment of the mA and/or kV according to patient size. MDM MDM: Differential diagnosis: Gastritis, GERD, pancreatitis, gastroenteritis Rationale: 59-year-old female who presents to the ED due to abdominal pain onset last night. Patient reports pain is at the left upper quadrant and radiates to the back, diarrhea. States she ate fried chicken yesterday. Denies any chest pain, vomiting or further associated symptoms. PMHx DM, HTN, stroke, hypercholesterolemia Labs obtained are nonspecific. UA negative for urinary tract infection. CT abdomen and pelvis indicate changes consistent with post cholecystectomy otherwise no acute abnormalities noted. Patient was administered Zofran and GI cocktail in the ED. On re-examination patient verbalized improvement of pain. Advised to follow up with PCP. Return to the ED if any worsening symptoms. Patient verbalized understanding. Patient stable for discharge. There are no social concerns with this patient. I independently interpreted the test that were performed, results were reviewed by me and considered findings on radiology if ordered. Medical management and examination interpretation discussions were had by me with other qualified healthcare professionals as indicated for the patient's care. ED Course Orders Procedure Category Date Status Time Vital Signs Per CPOE 05/16/24 Transmitted Routine 12:07 Saline Lock Iv CPOE 05/16/24 Transmitted 12:07 Cbc With Differential LAB 05/16/24 Complete 12:07 Lipase LAB 05/16/24 Complete 12:07 Urinalysis Profile LAB 05/16/24 Complete 12:07 Comprehensive LAB 05/16/24 Complete Metabolic Panel 12:20 Ondansetron 4mg Inj PHA 05/16/24 Complete (Zofran 4mg Inj) 12:30 Ct Abdomen/Pelvis CT 05/16/24 Resulted W/Contrast 12:20 Iohexol (Omnipaque) PHA 05/16/24 Complete 13:37 Mag/Alum/Simeth 30ml PHA 05/16/24 Complete (Maalox Plus 30ml) 14:00 Pantoprazole 40mg Inj PHA 05/16/24 Complete (Protonix 40mg Inj 14:00 Lidocaine Hcl 2% PHA 05/16/24 Complete Viscous (Lidocaine Hcl 14:00 Dicyclomine Hcl PHA 05/16/24 Complete (Bentyl 10mg/5ml 14:00 12 Lead Ekg Tracing- EKG 05/16/24 Resulted Technical 14:45 Current Medications Medications (Trade) Dose Ordered Sig/Adrián Route PRN Reason Start Time Stop Time Status Last Admin Dose Admin Al Hydroxide/Mg Hydroxide (MAALox PLUS 30ML) 30 ml ONCE ONCE PO 05/16/24 14:00 05/16/24 14:01 DC 05/16/24 13:45 Dicyclomine HCl (Bentyl 10mg/5ml Syrup) 10 mg ONCE ONCE PO 05/16/24 14:00 05/16/24 14:01 DC 05/16/24 13:46 Iohexol (Omnipaque) 75 ml STK-MED ONCE IV 05/16/24 13:37 05/16/24 13:37 DC Lidocaine HCl (Lidocaine HCl 2% Viscous) 10 ml ONCE ONCE PO 05/16/24 14:00 05/16/24 14:01 DC 05/16/24 13:45 Ondansetron HCl (zoFRAN 4MG INJ) 4 mg ONCE ONCE IVP 05/16/24 12:30 05/16/24 12:31 DC 05/16/24 12:53 Pantoprazole Sodium (PROTonix 40MG INJ) 40 mg ONCE ONCE IVP 05/16/24 14:00 05/16/24 14:01 DC 05/16/24 13:46 Vital Signs Date Time Temp Pulse Resp B/P (MAP) Pulse Ox O2 Delivery O2 Flow Rate FiO2 05/16/24 15:26 98.4 78 18 142/84 98 Room Air* 0 21 05/16/24 12:02 97.9 88 16 176/89 99 Room Air 0 DX & DISP Disposition: Discharge Departure Impression: Primary Impression: Gastritis Additional Impressions: Abdominal pain, Left upper quadrant abdominal pain Condition: Stable Scripts Pantoprazole Sodium (Protonix) 20 Mg Tablet.dr 20 MG PO DAILY for 30 Days, #30 TAB Prov: EN BREAUX 05/16/24 Additional Instructions: Discharge home. Rest. Follow up with primary care DrMyrtle in 24 hours. Return to the ER for any acute changes or worsening symptoms. If any medications were prescribed take as directed. Okay to continue home medications unless otherwise discussed during your visit in the emergency room today. Patient was also advised to follow-up with primary care physician in 1 to 2 days for continued monitoring. Referrals: SUE SCHUSTER MD (PCP) I participated in the following activities of this patient's care: For this patient encounter, I reviewed the PA or BACK GRAY CLOTH WASHER documentation, treatment plan, and medical decision making. I did not have [id number] time with this patient. I will sign as the reviewing DrMyrtle And agree with the treatment plan and disposition. EN BREAUX May 16, 2024 12:40
[2024-05-16 12:41] LABS: ADD UA MICROSCOPIC YES
[2024-05-16 12:43] LABS: BACTERIA,URINE RARE /HPF (None Seen); MUCUS,URINE RARE LPF (None Seen); SQUAMOUS EPITHELIAL CELL,UR FEW /HPF (0-2)
[2024-05-16 12:52] LABS: BASOPHILS # (AUTO) 0.03 K/uL (0.00-0.20); BASOPHILS % (AUTO) 0.3 % (0.0-5.0); EOSINOPHILS # (AUTO) 0.18 K/uL (0.00-0.70); HEMATOCRIT 45.3 % (36-48); IMMATURE GRANULOCYTE ABSOLUTE 0.05 K/uL (0-1); LYMPHOCYTES # (AUTO) 2.7 K/uL (1.0-4.8); LYMPHOCYTES % (AUTO) 30.3 % (21.0-51.0); MEAN CORPUSCULAR HEMOGLOBIN 31.2 pg (27.0-33.0); MEAN CORPUSCULAR VOLUME 91.7 fL (79-99); MONOCYTES # (AUTO) 0.6 K/uL (0.1-1.0); MONOCYTES % (AUTO) 6.3 % (3.0-13.0); NEUTROPHILS # (AUTO) 5.5 K/uL (1.8-7.7); NEUTROPHILS % (AUTO) 60.5 % (40.0-77.0); PLATELET COUNT (AUTO) 259 K/uL (130-400); RED BLOOD CELL COUNT(AUTO) 4.94 MIL/uL (4.00-5.50); RED CELL DISTRIBUTION WIDTH 13.2 % (11.0-15.5)
[2024-05-16] MEDS: ondanSETRON 4MG INJ IVP ONE (12:53)
[2024-05-16 13:17] LABS: CREATININE 0.7 mg/dL (0.5-1.0); POTASSIUM 3.8 mmol/L (3.5-5.1)
[2024-05-16 13:22] LABS: ALBUMIN 3.5 g/dL (3.5-5.0); BILIRUBIN,TOTAL 0.7 mg/dL (0.2-1.0); TOTAL PROTEIN, SERUM 7.9 g/dL (6.0-8.3)
--- NOTE | 2024-05-16 13:33 | NUR ---
STILL PENDING CONSENT FOR CT EXAM. NURSE NOTIFIED.
[2024-05-16] MEDS ORDERED: IOHEXOL-350 75 ML VIAL IV ONE (13:37)
[2024-05-16] MEDS: MAG/ALUM/SIMETH 30 ML UDCUP PO ONE (13:45)
[2024-05-16] MEDS: LIDOCAINE HCL 2% VISCOUS 15 ML UDCUP PO ONE (13:45)
[2024-05-16] MEDS: DICYCLOMINE HCL 10 MG/5 ML ML PO ONE (13:46)
[2024-05-16] MEDS: PANTOPrazole 40 MG/VIAL IVP ONE (13:46)
--- NOTE | 2024-05-16 14:32 | HMCIMG ---
Exam Type: CT ABDOMEN AND PELVIS WITH ORAL AND IV CONTRAST Clinical Information: LUQ pain Comparison: none Contrast: 100 cc's Isovue 370 IV, no complications or adverse reactions Technique: Routine helical scanning at 5mm collimation through the abdomen and pelvis was performed after oral contrast administration. The examination was done before and after IV contrast administration as well. Intermediate and 7 minute delayed post IV contrast administration images were performed, for adequate contrast distention of the urinary collecting systems, ureters and the urinary bladder. CT Dose Index (CTDI): 19.87 mGy Dose Length Product (DLP): 1030.48 total mGy-cm Findings: No evidence of nephro or ureterolithiasis is found. No hydronephrosis or ureteral dilatation is seen. The lung bases are clear. The stomach is unremarkable. It shows no wall thickening. No gross ulceration is seen. It is not overly distended. There are no surrounding inflammatory changes. No wall lesions are identified to suggest cancer. The spleen is unremarkable. It is not enlarged. The pancreas shows normal anatomy. It is not fatty replaced. It shows no lesions. The pancreatic duct is not dilated. The gallbladder is surgically absent. The adrenal glands are unremarkable. There is no enlargement. No lesions are noted. The liver is unremarkable. It shows no focal masses. The appendix is unremarkable. It shows no evidence of inflammation. No appendicolith is seen. The small bowel is unremarkable. There is no evidence of dilatation to suggest obstruction. No evidence of adynamic ileus is seen. There is no small bowel wall thickening to suggest enteritis. The colon is unremarkable. The urinary bladder is unremarkable. There is no wall thickening to suggest tumor or inflammation. There are no intraluminal calculi. There are no diverticula. There is no evidence of chronic bladder outlet obstruction. There is no evidence of urinary bladder distention to suggest urinary retention. The other pelvic structures are unremarkable. The bony and vascular structures are unremarkable for the patient's age. IMPRESSION: Status post cholecystectomy. No acute pathology. This study was performed using dose reduction techniques to include automated exposure control and/or adjustment of the mA and/or kV according to patient size.
[2024-05-16] MEDS ORDERED: PANT20TA PO (14:45)
--- NOTE | 2024-05-16 15:07 | EKG ---
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
[2024-05-16 15:26] VITALS: BP 142/84; PULSE 78; RESP 18; TEMP 98.5; O2SAT 98
== END 2024-05-16 15:27 | disposition home or self-care (01) ==
LOC: EDH 11:59
DX: K29.70 Gastritis, unspecified, without bleeding (principal); E11.9 Type 2 diabetes mellitus without complications; E78.00 Pure hypercholesterolemia, unspecified; I11.9 Hypertensive heart disease without heart failure; Z79.51 Long term (current) use of inhaled steroids; Z79.84 Long term (current) use of oral hypoglycemic drugs; Z79.899 Other long term (current) drug therapy; Z86.73 Personal history of transient ischemic attack (TIA), and cerebral infarction without residual deficits; Z88.6 Allergy status to analgesic agent; Z90.49 Acquired absence of other specified parts of digestive tract; Z98.890 Other specified postprocedural states
CPT/HCPCS: 99285; 74177; 96374; 96375; 80053; 83690; 85025; 81001; 36415; 93005; J2405; J2470; Q9967